=== PATIENT | male | born 1965 | race Caucasian/White ===

== ENCOUNTER 2021-06-30 08:39 | Day surgery (SDC) | payer OTHER | END 2021-06-30 22:54 | disposition home or self-care (01) | LOC: WOUND 08:39 | DX: T21.21XA Burn of second degree of chest wall, initial encounter (principal); T20.29XA Burn of second degree of multiple sites of head, face, and neck, initial encounter; T22.231A Burn of second degree of right upper arm, initial encounter; T22.232A Burn of second degree of left upper arm, initial encounter; T22.252A Burn of second degree of left shoulder, initial encounter; X08.8XXA Exposure to other specified smoke, fire and flames, initial encounter | CPT/HCPCS: A9270; G0463 ==

== ENCOUNTER → 2021-07-12 | Outpatient (CLI) | payer OTHER | END | disposition home or self-care (01) | LOC: LAB SHORT 10:00 → LAB 10:00 | DX: L08.9 Local infection of the skin and subcutaneous tissue, unspecified (principal) | CPT/HCPCS: 87070; 87077; 87147; 87186; 87205 ==